=== PATIENT | female | born 1950 | race Caucasian/White ===

== ENCOUNTER 2021-11-25 03:22 | Observation (INO) | payer MEDICARE, OTHER ==
[~2021-11-25] VITALS: Ht 167.6 cm; Wt 68.0 kg
[2021-11-25 03:41] LABS: HEMOGLOBIN 11.7 gm/dl (12.3-15.3); RED BLOOD COUNT 3.63 M/UL (4.00-5.10); WHITE BLOOD COUNT 5.7 K/UL (4.5-11.0)
[2021-11-25 04:57] LABS: BUN/CREATININE RATIO 12 (0-10)
[2021-11-25] MEDS ORDERED: DICLOFENAC SODI75 MG PO ×3 (10:37→11:36)
[2021-11-25] MEDS ORDERED: HYDROCODON-ACE1 EAC6 PO (10:37)
[2021-11-25] MEDS ORDERED: AMLODIPINE BESY10 MG PO ×2 (10:38→11:26)
[2021-11-25] MEDS ORDERED: LIPITOR40 MG PO ×2 (10:38→11:26)
[2021-11-25] MEDS ORDERED: COZAAR50 MG PO ×2 (10:39→11:26)
[2021-11-25] MEDS ORDERED: SERTRALINE HCL25 MG PO ×2 (10:39→11:26)
[2021-11-25] MEDS ORDERED: ASPIRIN EC81 MG PO ×2 (10:40→11:26)
[2021-11-25] MEDS ORDERED: LORATADINE10 MG PO ×2 (10:40→11:26)
[2021-11-25] MEDS ORDERED: SYNTHROID112 MCG PO (11:26)
[2021-11-25] MEDS ORDERED: VISTARIL25 MG PO (11:36)
== END 2021-11-25 13:12 | disposition home or self-care (01) ==
LOC: ER1 03:22 → M/S 05:17 → CDU 05:17 → M/S 07:15
PROVIDERS: Physician Assistant; ADMIT Internal Medicine
DX: R07.89 Other chest pain (principal); Z20.822 Contact with and (suspected) exposure to COVID-19; R00.1 Bradycardia, unspecified; E03.9 Hypothyroidism, unspecified; Z66 Do not resuscitate; E11.9 Type 2 diabetes mellitus without complications; I10 Essential (primary) hypertension; E78.5 Hyperlipidemia, unspecified; M54.50 Low back pain, unspecified; E87.6 Hypokalemia; F41.9 Anxiety disorder, unspecified; F32.A Depression, unspecified; G89.29 Other chronic pain; Z79.899 Other long term (current) drug therapy; Z88.5 Allergy status to narcotic agent; Z91.14 Patient's other noncompliance with medication regimen
CPT/HCPCS: ECHO; 71045; 80053; 80061; 81001; 82550; 82553; 83036; 83735; 83874; 83880; 84439; 84443; 84484; 85025; 87086; 93005; 93306; 96372; 99285; G0378; J1644; U0002